=== PATIENT | female | born 1980 | race Caucasian/White ===

== ENCOUNTER 2020-03-05 13:54 | Emergency (ER) | payer OTHER, MEDICAID ==
[~2020-03-05] VITALS: Ht 157.5 cm; Wt 81.7 kg
[~2020-03-05 13:54] MED LIST: AMOXICILLIN 50500 MG PO; FIORICET 50-301 EACH PO; HYDROCODONE-APA1 TA1 PO; MOBIC7.5 M1 PO; NOHOMEMEDICATIONS; PHENERGAN 25 MG25 M1 PO; PREDNISONE 20 M20 MG PO; ROBAXIN 750 MG750 M1 PO; VICOPROFEN 2001 EACH PO; ZOFRAN ODT4 MG PO
[2020-03-05 14:46] LABS: URINE BILIRUBIN NEGATIVE (Negative); URINE BLOOD TRACE (Negative); URINE COLOR YELLOW; URINE GLUCOSE-RANDOM NEGATIVE (Negative); URINE KETONES NEGATIVE (Negative); URINE LEUKOCYTES-REFLEX TRACE (Negative); URINE NITRITE-REFLEX NEGATIVE (Negative); URINE PROTEIN NEGATIVE (Negative); URINE SPECIFIC GRAVITY >= 1.030 (1.005-1.030); URINE UROBILINOGEN 0.2 E.U./dl (0.2-1.0)
[2020-03-05 14:47] LABS: URINE CLARITY HAZY
[2020-03-05 15:06] LABS: BACTERIA-REFLEX None Seen /HPF (None Seen); CASTS None Seen /LPF (None Seen); CRYSTALS None Seen /LPF (None Seen); MUCUS >6 Heavy strn/LPF (None Seen); SQUAMOUS >10 Many /LPF (0-3); URINE RBC None Seen /HPF (0-2); URINE WBC-REFLEX 0-5 Rare /HPF (0-5)
[2020-03-05] MEDS ORDERED: BENTYL 20 MG TA20 M1 PO (15:11)
[2020-03-05] MEDS ORDERED: ONDANSETRON HCL4 M2 PO (15:11)
[2020-03-05] MEDS ORDERED: DOXYCYCLINE 10100 MG PO (15:11)
[2020-03-05 15:27] LABS: ABSOLUTE BASOPHILS 0.1 thou/uL (0.0-0.2); ABSOLUTE EOSINOPHILS 0.2 thou/uL (0.0-0.7); ABSOLUTE LYMPHOCYTES 4.4 thou/uL (0.8-5.3); ABSOLUTE MONOCYTES 1.2 thou/uL (0.0-1.2); ABSOLUTE NEUTROPHILS 8.7 thou/uL (1.6-8.1); BASOPHILS 0.7 %; EOSINOPHILS 1.7 %; HEMOGLOBIN 15.5 gm/dL (12.0-15.0); LYMPHOCYTES 30.1 %; MCH 32.3 pg (26.0-34.0); MCHC 35.1 g/dL (28.0-37.0); MCV 91.9 fL (80.0-100.0); MPV 7.9 fl. (7.2-11.1); NUCLEATED RBCS 0 /100WBC; PLATELET COUNT* 520 thou/uL (150-400); POLYS 59.5 %; RBC 4.79 mil/uL (4.20-5.00); RDW-CV 13.4 % (10.5-14.5); WBC 14.6 thou/uL (4.0-11.0)
[2020-03-05 15:43] LABS: CALCIUM 8.6 mg/dL (8.5-10.1); POTASSIUM 4.1 mmol/L (3.5-5.1)
[2020-03-05 15:47] LABS: ALBUMIN 3.2 g/dL (3.4-5.0); TOTAL BILIRUBIN 0.4 mg/dL (<0.1-1.0); TOTAL PROTEIN 7.9 g/dL (6.4-8.2)
[2020-03-05 15:58] LABS: SGOT 49.2 U/L (15-37); SGPT 55.2 U/L (30-65)
[2020-03-05 17:18] VITALS: BP 122/74
== END 2020-03-05 17:19 | disposition home or self-care (01) ==
LOC: M.ERS 13:54
PROVIDERS: Nurse Practitioner Family
DX: A59.01 Trichomonal vulvovaginitis (principal); N73.9 Female pelvic inflammatory disease, unspecified; F17.210 Nicotine dependence, cigarettes, uncomplicated

== ENCOUNTER 2020-07-17 20:25 | Emergency (ER) | payer OTHER, MEDICAID ==
[~2020-07-17] VITALS: Ht 157.5 cm; Wt 77.1 kg
[~2020-07-17 20:25] MED LIST changes: +BENTYL 20 MG TA20 M1 PO; +DOXYCYCLINE 10100 MG PO; +ONDANSETRON HCL4 M2 PO
[2020-07-17 20:34] VITALS: BP 153/96
[2020-07-17] MEDS ORDERED: PENICILLIN VK500 MG PO (20:43)
[2020-07-17] MEDS ORDERED: IBUPROFEN 800800 MG PO (20:43)
[2020-07-17] MEDS ORDERED: TRAMADOL 50 MG50 MG PO (20:43)
== END 2020-07-17 20:51 | disposition home or self-care (01) ==
LOC: M.ERS 20:25
DX: K08.89 Other specified disorders of teeth and supporting structures (principal); F17.210 Nicotine dependence, cigarettes, uncomplicated